=== PATIENT | female | born 1985 | race Caucasian/White ===

== ENCOUNTER 2018-01-04 07:39 | Emergency (ER) | payer OTHER ==
[~2018-01-04] VITALS: Ht 160 cm; Wt 72.6 kg
[~2018-01-04 07:39] MED LIST: AVELOX ABC PAC400 MG; DIFLUCAN400 MG/200
== END 2018-01-04 08:56 | disposition home or self-care (01) ==
LOC: ER 07:39
DX: L02.512 Cutaneous abscess of left hand (principal)

== ENCOUNTER 2021-01-15 08:45 | Inpatient (IN) | payer OTHER ==
[~2021-01-15] VITALS: Ht 160 cm; Wt 2.7 kg
== END 2021-01-22 12:39 | disposition home or self-care (01) | DRG 785 ==
LOC: SURH 01-19 08:45 → SURG-SUITE 01-19 14:56 → O/R 01-19 14:56 → SURG-SUITE 01-19 22:50
PROVIDERS: ADMIT Obstetrics & Gynecology; ATTEND Obstetrics & Gynecology
PROC: 0UB70ZZ Excision of Bilateral Fallopian Tubes, Open Approach (ICD-10-PCS; 2021-01-19)
PROC: 4A1HXFZ Monitoring of Products of Conception, Cardiac Rhythm, External Approach (ICD-10-PCS; 2021-01-19)
PROC: 10D00Z1 Extraction of Products of Conception, Low, Open Approach (ICD-10-PCS; principal; 2021-01-19 09:00)
DX: O65.5 Obstructed labor due to abnormality of maternal pelvic organs (principal); O34.211 Maternal care for low transverse scar from previous cesarean delivery; Z30.2 Encounter for sterilization; Z37.0 Single live birth; Z3A.36 36 weeks gestation of pregnancy

== ENCOUNTER 2025-02-25 10:54 | Day surgery (SDC) | payer OTHER ==
[2025-02-23 09:01] VITALS: BP 122/87
[2025-02-23 09:22] LABS: BASO % 0.6 % (0.1-1.2); EOS # 0.07 (0.04-0.54); HEMATOCRIT 38.8 % (34.1-44.9); HEMOGLOBIN 12.5 g/dL (11.2-15.7); LYMPH # 0.97 (1.18-3.74); LYMPH % 27.8 % (19.3-53.1); MEAN CORPUSCULAR HEMOGLOBIN 27.1 pg (25.6-32.2); MONO # 0.42 (0.24-0.82); NEUT % 57.3 % (34.0-71.1); PLATELET COUNT 228 K/uL (163-369); RED BLOOD COUNT 4.62 M/uL (3.93-5.22); RED CELL DISTRIBUTION WIDTH 12.8 % (11.6-14.4)
[2025-02-23 09:32] LABS: URINE APPEARANCE Clear; URINE BILIRRUBIN Negative (NEGATIVE); URINE BLOOD Small; URINE COLOR Yellow; URINE GLUCOSE Negative (NEGATIVE); URINE KETONE Negative (NEGATIVE); URINE LEUKOCYTE Negative; URINE NITRATE Negative; URINE PROTEIN Negative (NEGATIVE); URINE UROBILINOGEN 0.2 E.U./dl
[2025-02-23 09:36] LABS: URINE BACTERIA 522.5 uL (0.0-1933); URINE EPITHELIAL CELLS 34.4 uL (0.0-38.8); URINE RBC 8.2 uL (0.0-20.8); URINE WBC 2.2 uL (0.0-23.2)
[2025-02-23 09:42] LABS: INR 1.01; PARTIAL THROMBOPLASTIN TIME 26.5 SECONDS (22.0-34.0)
[2025-02-23 10:18] LABS: ALBUMIN 3.8 gm/dL (3.4-5.0); BILIRUBIN TOTAL 0.53 mg/dL (0.3-1.2); CALCIUM 8.7 mg/dL (8.5-10.1); CREATININE SERUM 0.61 mg/dL (0.55-1.02); GFR 108.63; GLOBULINA 3.4 G/DL (2.4-3.5); POTASSIUM 4.66 mEq/L (3.5-5.1); TOTAL PROTEIN 7.2 gm/dL (6.4-8.2)
[~2025-02-25] VITALS: Ht 160 cm; Wt 77.1 kg
[2025-02-25] MEDS ORDERED: POVIDONE-IODINE 118 ML BOTT TOP ONE (14:32)
[2025-02-25] MEDS ORDERED: PROMETHAZINE HCL 50 MG/ML AMPUL IM ONE (16:15)
[2025-02-25] MEDS ORDERED: MORPHINE SULFATE 4 MG/ML VIAL IV PRN (16:15)
[2025-02-25] MEDS ORDERED: ONDANSETRON HCL 2 MG/ML VIAL ONE (17:50)
[2025-02-25] MEDS ORDERED: ONDANSETRON HCL 2 MG/ML VIAL IV ONE (17:55)
== END 2025-02-25 19:25 | disposition home or self-care (01) ==
LOC: CIR.AMB 10:54
PROVIDERS: ATTEND Obstetrics & Gynecology
DX: N84.0 Polyp of corpus uteri (principal); N84.1 Polyp of cervix uteri; N93.8 Other specified abnormal uterine and vaginal bleeding; Z88.8 Allergy status to other drugs, medicaments and biological substances